=== PATIENT | male | born 1985 | race Caucasian/White ===

== ENCOUNTER 2016-06-03 20:20 | Emergency (ER) | payer MEDICAID ==
[~2016-06-03] VITALS: Ht 172.7 cm; Wt 92.3 kg
[2016-06-03 20:24] VITALS: BP 143/89
--- NOTE | 2016-06-03 22:28 | NUR ---
PATIENT TO BED 4.
--- NOTE | 2016-06-03 22:29 | NUR ---
30Y M BIB FAMILY C/O DYSURIA X 2 WEEKS WITH RIGHT FLANK PAIN RADIATES TO PENIS. PT DENIES N/V/D; SKIN IS PINK/WARM/DRY; AAOX4 WITH EVEN AND STEADY GAIT; LUNGS CLEAR BL; HR EVEN AND REGULAR; PT DENIES ANY FEVER, CP, SOB, OR COUGH AT THIS TIME; PATIENT STATES PAIN OF 6/10 AT THIS TIME; VSS; PATIENT POSITIONED FOR COMFORT; HOB ELEVATED; BEDRAILS UP X2; BED DOWN. ER MD MADE AWARE OF PT STATUS.
--- NOTE | 2016-06-04 00:55 | NUR ---
Patient being evaluated by physician DR BROWN at bedside.
[2016-06-04 01:06] VITALS: BP 128/76
--- NOTE | 2016-06-04 01:06 | NUR ---
Patient discharged with v/s stable. Written and verbal after care instructions given and explained. Patient alert, oriented and verbalized understanding of instructions. Ambulatory with steady gait. All questions addressed prior to discharge. ID band removed. Patient advised to follow up with PMD. Rx of NORCO 5/325MG AND CIPRO 500MG given. Patient educated on indication of medication including possible reaction and side effects. Opportunity to ask questions provided and answered.
== END 2016-06-04 01:06 | disposition home or self-care (01) ==
LOC: MED 20:20
DX: R10.13 Epigastric pain (principal); R30.0 Dysuria; R50.9 Fever, unspecified

== ENCOUNTER 2018-05-12 14:26 | Emergency (ER) | payer MEDICAID ==
[~2018-05-12] VITALS: Ht 172.7 cm; Wt 93.0 kg
[2018-05-12 14:55] VITALS: BP 130/77
--- NOTE | 2018-05-12 15:03 | NUR ---
PT TRIAGED AND SENT TO ER RUMABY, ED AWARE OF PATIENT STATUS.
--- NOTE | 2018-05-12 16:07 | NUR ---
PT AMBULATES W/ STEADY GAIT TO BED 6 AT THIS TIME
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
[2018-05-12] MEDS ORDERED: KETOROLAC 30 MG/ML VIAL IM ONE (17:25)
[2018-05-12 18:41] VITALS: BP 127/80
--- NOTE | 2018-05-12 18:41 | NUR ---
Patient discharged with v/s stable. Written and verbal after care instructions given and explained. Patient alert, oriented and verbalized understanding of instructions. Ambulatory with steady gait. All questions addressed prior to discharge. ID band removed. Patient advised to follow up with PMD. Rx of NAPROSYN, TYLENOL WITH CODEINE given. Patient educated on indication of medication including possible reaction and side effects. Opportunity to ask questions provided and answered.
== END 2018-05-12 18:41 | disposition home or self-care (01) ==
LOC: MED 14:26
DX: S63.501A Unspecified sprain of right wrist, initial encounter (principal); W19.XXXA Unspecified fall, initial encounter; Y93.89 Activity, other specified; Y92.89 Other specified places as the place of occurrence of the external cause; Y99.8 Other external cause status
CPT/HCPCS: 29125; 73110; 96372; 99283; J1885; Q0092

== ENCOUNTER 2018-06-03 09:17 | Emergency (ER) | payer MEDICAID ==
[~2018-06-03] VITALS: Ht 172.7 cm; Wt 90.7 kg
--- NOTE | 2018-06-03 09:41 | NUR ---
BIB C/O FEVER, HEADACHE, COUGH, SORE THROAT N/V X 2 DAYS. TOOK PENICILLINE 500MG X TWICE. HE GOT MED FROM [place]. MED HX: DENIES MED: NONE
[2018-06-03] MEDS ORDERED: KETOROLAC 60 MG/2 ML VIAL IM ONE (10:00)
--- NOTE | 2018-06-03 10:10 | NUR ---
PT TAKEN OFF THE UNIT FOR CT OF THE HEAD/SPINE VIA GURNEY BY CONVEYOR LOADER MADHURI
[2018-06-03] MEDS ORDERED: ACETAMINOPHEN EXTRA STRENGTH 500 MG TAB PO ONE (10:20)
--- NOTE | 2018-06-03 11:24 | NUR ---
Efren contreras in EDM - 06/03/18 at 1125 by RICHY SPEAKING WITH --REVIEWED ULTRASOUND READ PLAN IS TO MEDICATE IM AND NO PICC LINE WARRANTED AT THIS TIME. ---PT REFUSED LABS IF HE IS NOT GETTING A PICC LINE AWARE
--- NOTE | 2018-06-03 11:28 | NUR ---
AAO X4 PT WITH AT BEDSIDE, NO ACUTE DISTRESS NOTED AT THIS TIME, STILL C/O PAIN 11/23, INFORMED WAITING FOR RESULTS OF CT SCAN, WILL CONTINUE TO MONITOR, WAITING FOR ADDITIONAL ORDERS.
[2018-06-03] MEDS ORDERED: hydrOXYzine HCL 25 MG TAB PO ONE (11:40)
--- NOTE | 2018-06-03 11:55 | NUR ---
FLU SPECIMEN COLLECTED AND GIVEN TO KARL ZHAO
--- NOTE | 2018-06-03 12:26 | NUR ---
CALLED LAB FOR FLU RESULTS PER DR PRUITT REQUEST, PER LAB WILL CALL BACK IN 25 MORE MIN, DR PRUITT NOTIFIED
--- NOTE | 2018-06-03 13:07 | NUR ---
PER [employer] TEAM LEADER THEY HAD PROBLEMS BURNING CT RESULTS TO A CD. WILL TRY AGAIN. FAMILY NOTIFIED
--- NOTE | 2018-06-03 14:06 | NUR ---
Patient discharged with v/s stable. Written and verbal after care instructions given and explained. Patient alert, oriented and verbalized understanding of instructions. Ambulatory with steady gait. All questions addressed prior to discharge. ID band removed. Patient advised to follow up with PMD. Rx of TAMIFLU/PROMETHAZINE DM/MOTRIN given. Patient educated on indication of medication including possible reaction and side effects. Opportunity to ask questions provided and answered. CT CD HANDED TO PT
[2018-06-03 14:07] VITALS: BP 121/78
== END 2018-06-03 14:06 | disposition home or self-care (01) ==
LOC: MED 09:17
DX: J10.1 Influenza due to other identified influenza virus with other respiratory manifestations (principal); Z87.828 Personal history of other (healed) physical injury and trauma
CPT/HCPCS: 36415; 70450; 72125; 87804; 96372; 99284; J1885

== ENCOUNTER 2018-06-04 23:02 | Emergency (ER) | payer MEDICAID ==
[~2018-06-04] VITALS: Ht 172.7 cm; Wt 90.7 kg
--- NOTE | 2018-06-04 23:06 | NUR ---
PT TAKEN TO BED 4
[2018-06-04 23:15] VITALS: BP 133/62
--- NOTE | 2018-06-04 23:15 | NUR ---
PATIENT PRESENTS TO ED WITH C/O SORE THROAT X1 DAY, WAS SEEN IN ED AND DIAGNOSED WITH INFLUENZA. ALSO REPORTS VOMITING; SKIN IS PINK/WARM/DRY; AAOX4 WITH EVEN AND STEADY GAIT; LUNGS CLEAR BL; HR EVEN AND REGULAR; PT DENIES ANY FEVER, CP, SOB, OR COUGH AT THIS TIME; PATIENT STATES PAIN OF 10/10 AT THIS TIME; VSS; PATIENT POSITIONED FOR COMFORT; HOB ELEVATED; BEDRAILS UP X1; BED DOWN. ER MD MADE AWARE OF PT STATUS. PMH--DENIES RX-DENIES
--- NOTE | 2018-06-05 00:07 | NUR ---
Dr. Fernandez evaluating patient at bedside.
[2018-06-05 00:30] VITALS: BP 120/72
--- NOTE | 2018-06-05 00:30 | NUR ---
Patient discharged with v/s stable. Written and verbal after care instructions given and explained. Patient verbalized understanding. Ambulatory with steady gait. All questions addressed prior to discharge. Advised to follow up with PMD.
== END 2018-06-05 00:30 | disposition home or self-care (01) ==
LOC: MED 23:02
DX: J10.1 Influenza due to other identified influenza virus with other respiratory manifestations (principal)
CPT/HCPCS: 99283